=== PATIENT | male | born 1985 | race Caucasian/White ===

== ENCOUNTER 2016-09-17 08:43 | Emergency (ER) | payer BC ==
[2016-09-17] MEDS ORDERED: Sodium Chloride 0.9% 10 ML Syringe FLUSH PRN ×2 (09:01→09:10)
[2016-09-17 09:02] VITALS: BP 119/65
[2016-09-17] MEDS ORDERED: HYDROmorphone 1 MG/ML Syringe IVPUSH ONE (09:03)
[2016-09-17] MEDS ORDERED: Iopamidol 755 Mg/ML 100 ML Bottle IVPUSH ONE (09:10)
[2016-09-17] MEDS ORDERED: Iopamidol 755 MG/ML 50 ML Bottle IVPUSH ONE (09:10)
[2016-09-17] MEDS ORDERED: Sodium Chloride 0.9% 100 ML IV SCH (09:15)
--- NOTE | 2016-09-17 09:46 | CT ---
CT chest Technique: Multiple axial sections through the chest were obtained. Intravenous contrast was utilized. Study has been performed as a pulmonary angiogram protocol. Findings: Pulmonary arteries are fairly well-opacified. No filling defects are seen to indicate pulmonary embolism. No pericardial thickening is seen. Mediastinum and hilar regions show no adenopathy or mass. No axillary adenopathy is seen. Small portion of the visualized upper abdominal structures appears within normal limits. Lung window settings were reviewed appear clear. No pleural effusions are seen. Bone window settings were reviewed which shows no discrete abnormality. Impression: 1. No findings of pulmonary embolism. 2. Other portions of the CT exam of the chest appears within normal limits. Diagnostic code #1
--- NOTE | 2016-09-17 10:09 | EDM.PDOC ---
ED HPI GENERAL MEDICAL PROBLEM - General Chief Complaint: Chest Pain Stated Complaint: CHEST PAIN Time Seen by Provider: 09/17/16 08:56 Source of Information: Reports: Patient History Limitations: Reports: No Limitations - History of Present Illness INITIAL COMMENTS - FREE TEXT/NARRATIVE: The patient presents with right upper back pain and shortness of breath. He woke up with this yesterday morning. He denies any injury. The pain is constant, sharp and it is made worse by movement and deep breathing. He has no fever, chills, cough, chest pain, abdominal pain, nausea or vomiting. He has no history of heart problems, DVT, PE, or HTN. He has no pain or edema in his legs. 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 Onset: Sudden Duration: Day(s): (Yesterday at 9am) Location: Reports: Back (Right upper) Quality: Reports: Sharp Severity: Severe Improves with: Reports: Immobilization Worsens with: Reports: Breathing, Movement Context: Reports: Activity (He woke up with it) Associated Symptoms: Reports: Shortness of Breath. Denies: Chest Pain, Cough, Fever/Chills, Nausea/Vomiting Left Back Pain Score (Numeric/FACES): 5 - Related Data Allergies Allergy/AdvReac Type Severity Reaction Status Date / Time coconut oil Allergy Hives Verified 09/17/16 08:58 Home Meds: Home Meds Cyclobenzaprine [Flexeril] 10 mg PO TID PRN #20 tablet 09/17/16 [Rx] Hydrocodone/Acetaminophen [Hydrocodon-Acetaminophen 5-325] 1 - 2 each PO Q6HR PRN #20 tablet 09/17/16 [Rx] Past Medical History - Past Health History Medical/Surgical History: Denies Medical/Surgical History Social & Family History - Tobacco Use Smoking Status *Q: Never Smoker - Recreational Drug Use Recreational Drug Use: No ED ROS GENERAL - Review of Systems Review Of Systems: See Below Constitutional: Reports: No Symptoms HEENT: Reports: No Symptoms Respiratory: Reports: Shortness of Breath. Denies: Cough Cardiovascular: Reports: No Symptoms Endocrine: Reports: No Symptoms GI/Abdominal: Reports: No Symptoms : Reports: No Symptoms Musculoskeletal: Reports: Back Pain (Right upper) Skin: Reports: No Symptoms ED EXAM, GENERAL - Physical Exam Exam: See Below Exam Limited By: No Limitations General Appearance: Alert, No Apparent Distress Ears: Normal External Exam Nose: Normal Inspection Head: Atraumatic, Normocephalic Neck: Normal Inspection Respiratory/Chest: No Respiratory Distress, Lungs Clear, Normal Breath Sounds Cardiovascular: Regular Rate, Rhythm, No Edema, No Murmur GI/Abdominal: Soft, Non-Tender, No Organomegaly, No Mass Back Exam: Other (Pain upon palpation to the right upper back just medial to the scapula) EKG INTERPRETATION EKG Date: 09/17/16 Time: 08:51 Rhythm: Other (Sinus bradycardia) Rate (Beats/Min): 41 [place]: Normal P-Wave: Present QRS: Normal ST-T: Normal QT: Normal Course - Vital Signs Last Recorded V/S: Last Vital Signs Temp 97.4 F 09/17/16 08:59 Pulse 45 L 09/17/16 08:59 Resp 13 09/17/16 08:59 BP 119/65 09/17/16 08:59 Pulse Ox 100 09/17/16 08:59 - Orders/Labs/Meds Orders: Active Orders 24 hr Category Date Time Status Cardiac Monitoring [RC] . DIRECTED Care 09/17/16 09:01 Active EKG 12 Lead [EKG Documentation Completion] [RC] STAT Care 09/17/16 09:19 Active Oxygen Therapy [RC] PRN Care 09/17/16 09:02 Active Peripheral IV Care [RC] . DIRECTED Care 09/17/16 09:02 Active Sodium Chloride 0.9% [Normal Saline] 100 ml Med 09/17/16 09:15 Active IV ASDIRECTED Sodium Chloride 0.9% [Saline Flush] Med 09/17/16 09:01 Active 10 ml FLUSH ASDIRECTED PRN Sodium Chloride 0.9% [Saline Flush] Med 09/17/16 09:10 Active 10 ml FLUSH ONETIME PRN Peripheral IV Insertion Adult [OM.PC] Stat Oth 09/17/16 09:01 Ordered Medication Orders Sodium Chloride (Normal Saline) 100 mls @ 80 mls/hr IV ASDIRECTED SU Last Admin: 09/17/16 09:14 Dose: 80 mls/hr Sodium Chloride (Saline Flush) 10 ml FLUSH ASDIRECTED PRN PRN Reason: Keep Vein Open Last Admin: 07/14/17 09:28 Dose: 10 ml Sodium Chloride (Saline Flush) 10 ml FLUSH ONETIME PRN PRN Reason: IV FLUSH Last Admin: 09/17/16 09:15 Dose: 10 ml Labs: Laboratory Tests 09/17/16 09/17/16 Range/Units 09:00 09:00 WBC 7.97 (4.23-9.07) K/mm3 RBC 4.77 (4.63-6.08) M/mm3 Hgb 14.9 (13.7-17.5) gm/L Hct 42.8 (40.1-51.0) % MCV 89.7 (79.0-92.2) fl MCH 31.2 (25.7-32.2) pg MCHC 34.8 (32.2-35.5) g/dl RDW Std Deviation 41.5 (35.1-43.9) fL Plt Count 237 (163-337) K/mm3 MPV 9.4 (9.4-12.3) fl Neut % (Auto) 60.4 (34.0-67.9) % Lymph % (Auto) 26.1 (21.8-53.1) % Cross % (Auto) 8.7 (5.3-12.2) % Eos % (Auto) 3.6 (0.8-7.0) Baso % (Auto) 0.6 (0.1-1.2) % Neut # (Auto) 4.81 (1.78-5.38) K/mm3 Lymph # (Auto) 2.08 (1.32-3.57) K/mm3 Cross # (Auto) 0.69 (0.30-0.82) K/mm3 Eos # (Auto) 0.29 (0.04-0.54) K/mm3 Baso # (Auto) 0.05 (0.01-0.08) K/mm3 Sodium 140 (136-145) mEq/L Potassium 4.6 (3.5-5.1) mEq/L Chloride 108 H (98-107) mEq/L Carbon Dioxide 25 (21-32) mEq/L Anion Gap 11.6 (5-15) BUN 12 (7-18) mg/dL Creatinine 1.0 (0.7-1.3) mg/dL Est Cr Clr Drug Dosing 117.48 mL/min Estimated GFR (MDRD) > 60 (>60) mL/min BUN/Creatinine Ratio 12.0 L (14-18) Glucose 102 (74-106) mg/dL Calcium 8.5 (8.5-10.1) mg/dL Total Bilirubin 0.5 (0.2-1.0) mg/dL AST 31 (15-37) U/L ALT 40 (16-63) U/L Alkaline Phosphatase 104 (46-116) U/L Troponin I < 0.017 (0.00-0.056) ng/mL Total Protein 6.7 (6.4-8.2) g/dl Albumin 3.5 (3.4-5.0) g/dl Globulin 3.2 gm/dL Albumin/Globulin Ratio 1.1 (1-2) Meds: Medications Generic Name Dose Route Start Last Admin Trade Name Freq PRN Reason Stop Dose Admin Sodium Chloride 100 mls @ 80 mls/hr 09/17/16 09:15 09/17/16 09:14 Normal Saline IV 80 mls/hr ASDIRECTED SU Administration Sodium Chloride 10 ml 09/17/16 09:01 09/17/16 09:28 Saline Flush FLUSH 10 ml ASDIRECTED PRN Administration Keep Vein Open Sodium Chloride 10 ml 09/17/16 09:10 09/17/16 09:15 Saline Flush FLUSH 10 ml ONETIME PRN Administration IV FLUSH Discontinued Medications Generic Name Dose Route Start Last Admin Trade Name Freq PRN Reason Stop Dose Admin Hydromorphone HCl 1 mg 09/17/16 09:03 09/17/16 09:26 Dilaudid IVPUSH 09/17/16 09:04 1 mg ONETIME ONE Administration Iopamidol 50 ml 09/17/16 09:10 09/17/16 09:15 [id number] (76%) IVPUSH 09/17/16 09:11 50 ml ONETIME ONE Administration Iopamidol 100 ml 09/17/16 09:10 09/17/16 09:15 Isovue-370 (76%) IVPUSH 09/17/16 09:11 60 ml ONETIME ONE Administration - Re-Assessments/Exams Free Text/Narrative Re-Assessment/Exam: 09/17/16 10:09 I ordered an IV saline lock, dilaudid 1mg IV, EKG, labs and a CT angio of his chest to rule out PE. His EKG shows a sinus bradycardia at a rate of 41 with no acute changes. He says his heart rate is low at time but not this low from what he remembers. He is not lightheaded with this. His labs all look good. The CT of his chest shows no PE and nothing else abnormal. It appears to be a muscle cramp and back strain. I will get flexeril and hydrocodone. I will also put him on a holter monitor for 2 days. He says at times he will get lightheaded and shaky. He will eat tome sugar and feel better. This could be related. I will see what the holter monitor shows. Departure - Departure Time of Disposition: 10:20 Disposition: Home, Self-Care 01 Condition: Good Clinical Impression: Bradycardia Thoracic back pain Qualifiers: Chronicity: acute Back pain laterality: right Qualified Code(s): M54.6 - Pain in thoracic spine Prescriptions: Hydrocodone/Acetaminophen [Hydrocodon-Acetaminophen 5-325] 1 - 2 each PO Q6HR PRN #20 tablet PRN Reason: Pain Cyclobenzaprine [Flexeril] 10 mg PO TID PRN #20 tablet PRN Reason: Pain Referrals: Mamie Tafoya BOAT DESIGNER [Ordering Only Provider] - 1 Week Forms: ED Department Discharge, Return to Work/School Form Additional Instructions: Take the hydrocodone and flexeril for the back pain. You may also take motrin or aleve for the pain. Wear the holter monitor for 2 days and return it. Follow up with Mamie Tafoya next week. Please return if you are worse. - My Orders Last 24 Hours: My Active Orders 09/17/16 09:01 Cardiac Monitoring [RC] . DIRECTED Sodium Chloride 0.9% [Saline Flush] 10 ml FLUSH ASDIRECTED PRN Peripheral IV Insertion Adult [OM.PC] Stat 09/17/16 09:02 Oxygen Therapy [RC] PRN Peripheral IV Care [RC] . DIRECTED 09/17/16 09:10 Sodium Chloride 0.9% [Saline Flush] 10 ml FLUSH ONETIME PRN 09/17/16 09:15 Sodium Chloride 0.9% [Normal Saline] 100 ml IV ASDIRECTED 09/17/16 09:19 EKG 12 Lead [EKG Documentation Completion] [RC] STAT - Assessment/Plan Last 24 Hours: My Active Orders 09/17/16 09:01 Cardiac Monitoring [RC] . DIRECTED Sodium Chloride 0.9% [Saline Flush] 10 ml FLUSH ASDIRECTED PRN Peripheral IV Insertion Adult [OM.PC] Stat 09/17/16 09:02 Oxygen Therapy [RC] PRN Peripheral IV Care [RC] . DIRECTED 09/17/16 09:10 Sodium Chloride 0.9% [Saline Flush] 10 ml FLUSH ONETIME PRN 09/17/16 09:15 Sodium Chloride 0.9% [Normal Saline] 100 ml IV ASDIRECTED 09/17/16 09:19 EKG 12 Lead [EKG Documentation Completion] [RC] STAT
== END 2016-09-17 11:05 | disposition home or self-care (01) ==
LOC: JD.ED 08:43
DX: M54.6 Pain in thoracic spine (principal); R00.1 Bradycardia, unspecified; Z91.018 Allergy to other foods
CPT/HCPCS: 36415; 71275; 80053; 84484; 85025; 93005; 93225; 93226; 96374; 99285; J1170; J7030; J7050; Q9967; 99284

== ENCOUNTER 2016-09-18 10:08 | Emergency (ER) | payer BC ==
[2016-09-18 10:17] VITALS: BP 115/77
[2016-09-18] MEDS ORDERED: Orphenadrine 100 MG Tab.ER PO STA (10:35)
--- NOTE | 2016-09-18 10:44 | EDM.PDOC ---
ED HPI GENERAL MEDICAL PROBLEM - General Chief Complaint: Chest Pain Stated Complaint: BACK PAIN AND CHEST PAIN NOT BETTER Time Seen by Provider: 09/18/16 10:19 Source of Information: Reports: Patient, Old Records, RN Notes Reviewed History Limitations: Reports: No Limitations - History of Present Illness INITIAL COMMENTS - FREE TEXT/NARRATIVE: The patient was seen in this ED yesterday, 09/17/2016 with upper back pain and shortness of breath since yesterday morning. The pain was made worse with movement and deep breathing. Workup included a CBC, CMP, troponin, and ECG, and a CT echogram of the chest. Other than bradycardia at 41 bpm, the patient's workup was unremarkable. Dr. Galan felt that the patient was suffering from a muscle cramp and back strain, and prescribed Flexeril and hydrocodone, along with a 48 hour Holter monitor The patient now returns with the same complaint of left scapular pain, without radiation. It is stabbing and dull in character. It is made worse if the patient turns his head to the right or tips his chin to his chest, breathing deeply, or crosses his left lower extremity across his chest. He reports some shortness of breath, but no nausea, diaphoresis, or sense of impending doom. He states that his symptoms have not improved since yesterday, which is why he has returned. The patient's PCP is Kaitlin Tafoya. The patient states that he has a follow- up appointment with her this coming 09/21/2016. Back Pain Score (Numeric/FACES): 8 - Related Data Allergies Allergy/AdvReac Type Severity Reaction Status Date / Time coconut oil Allergy Hives Verified 09/17/16 08:58 Home Meds: Home Meds Cyclobenzaprine [Flexeril] 10 mg PO TID PRN #20 tablet 09/17/16 [Rx] Hydrocodone/Acetaminophen [Hydrocodon-Acetaminophen 5-325] 1 - 2 each PO Q6HR PRN #20 tablet 09/17/16 [Rx] Orphenadrine [Norflex] 1 tab PO Q12H #20 tab.er 09/18/16 [Rx] Past Medical History - Past Surgical History HEENT Surgical History: Reports: Oral Surgery ([place] teeth extraction) Musculoskeletal Surgical History: Reports: Arthroscopic Knee (right) Social & Family History - Family History Family Medical History: Noncontributory - Tobacco Use Smoking Status *Q: Never Smoker - Caffeine Use Caffeine Use: Reports: None - Alcohol Use Alcohol Use History: Yes Alcohol Use Frequency: Rarely - Recreational Drug Use Recreational Drug Use: No - Living Situation & Occupation Living situation: Reports: Single, with Significant Other (Fiance), with Family (Daughter) 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) ED ROS GENERAL - Review of Systems Review Of Systems: See Below Constitutional: Reports: No Symptoms HEENT: Reports: No Symptoms Respiratory: Reports: No Symptoms Cardiovascular: Reports: No Symptoms Endocrine: Reports: No Symptoms GI/Abdominal: Reports: No Symptoms : Reports: No Symptoms Musculoskeletal: Reports: No Symptoms Skin: Reports: No Symptoms Neurological: Reports: No Symptoms Psychiatric: Reports: No Symptoms Hematologic/Lymphatic: Reports: No Symptoms Immunologic: Reports: No Symptoms ED EXAM, GENERAL - Physical Exam Exam: See Below Exam Limited By: No Limitations General Appearance: Alert, WD/WN, No Apparent Distress Eye Exam: Bilateral Eye: Normal Inspection Ears: Normal External Exam, Hearing Grossly Normal Nose: Normal Inspection, No Blood Throat/Mouth: Normal Inspection, Normal Lips, Normal Voice, No Airway Compromise Head: Atraumatic, Normocephalic Neck: Normal Inspection, Supple, Non-Tender, Full Range of Motion, Other (Pain induced in the patient's left scapular area with turning his head to the right, or tipping his chin to his chest, but not with turning his head to the left or extending his head backwards.) Respiratory/Chest: No Respiratory Distress, Lungs Clear, Normal Breath Sounds, No Accessory Muscle Use, Chest Non-Tender Cardiovascular: Normal Peripheral Pulses, Regular Rate, Rhythm, No Gallop, No JVD, No Murmur, No Rub Peripheral Pulses: 4+: Radial (L), Radial (R) GI/Abdominal: Normal Bowel Sounds, Soft, Non-Tender, No Organomegaly, No Distention, No Abnormal Bruit, No Mass (Male) Exam: Deferred Rectal (Males) Exam: Deferred Back Exam: Normal Inspection, Full Range of Motion, Other (Reproducible tenderness to palpation of the left parascapular musculature.) Extremities: Normal Inspection, Normal Range of Motion, No Pedal Edema, Normal Capillary Refill Neurological: Alert, Oriented, Normal Cognition, No Motor/Sensory Deficits Psychiatric: Normal Affect Skin Exam: Warm, Dry, Intact, Normal Color, No Rash Lymphatic: No Adenopathy Course - Vital Signs Last Recorded V/S: Last Vital Signs Temp 36.6 C 09/18/16 10:13 Pulse 41 L 09/18/16 10:13 Resp 14 09/18/16 10:13 BP 115/77 09/18/16 10:13 Pulse Ox 97 09/18/16 10:13 - Orders/Labs/Meds Orders: Active Orders 24 hr Category Date Time Status EKG Documentation Completion [RC] STAT Care 09/18/16 10:23 Active Meds: Medications Discontinued Medications Generic Name Dose Route Start Last Admin Trade Name Lizz PRN Reason Stop Dose Admin Orphenadrine Citrate 100 mg 09/18/16 10:35 09/18/16 10:40 Norflex PO 09/18/16 10:36 100 mg ONETIME STA Administration - Re-Assessments/Exams Free Text/Narrative Re-Assessment/Exam: 09/18/16 10:36 The patient is suffering from left parascapular muscle spasm. It is reproducible on palpation, as well as with certain physical activities. His examination is not consistent with cervical radiculopathy. The patient was prescribed both Flexeril and [place] yesterday. Flexeril is not actually a muscle relaxant - I am going to switch him to Norflex. Additionally, one of the side effects of all opioids is muscle spasm, therefore it is not the ideal agent for pain from a muscle spasm. I am going to recommend he switch to ibuprofen. The additional benefit of the switch is is that the patient would be able to work and drive, which is not possible if he is taking either Flexeril or [place]. The patient is anxious to get rid of the Holter monitor, stating that it is not staying on, anyway. I will have respiratory collect it. Departure - Departure Time of Disposition: 10:37 Disposition: Home, Self-Care 01 Condition: Good Clinical Impression: Muscle spasm of back - Discharge Information Prescriptions: Orphenadrine [Norflex] 1 tab PO Q12H #20 tab.er Instructions: Muscle Cramps and Spasms, [id number] Referrals: Mamie Tafoya, SAFETY ASSOCIATE [Primary Care Provider] - Forms: ED Department Discharge Additional Instructions: You were seen in the emergency room for pain in your left shoulder blade area. Workup for this same problem yesterday, 09/17/2016, included a CBC, CMP, troponin , ECG, and CT angiogram of her chest, all of which were normal. You do not have a blood clot in your chest, pneumonia, a collapsed lung, and you have not had a heart attack. On examination, you have reproducible tenderness to this area, due to a muscle spasm of the parascapular muscles. Your pain has nothing to do with your heart. You have been started on the muscle relaxant Norflex. Take one tablet every 12 hours, as prescribed. We recommend you take [id number] ibuprofen, 2-3 tablets (400-600 mg) every 8 hours, with food, as needed for discomfort. We recommend that you DISCONTINUE both the Flexeril and [place]. Follow-up with your PCP, Kaitlin Tafoya, at your previously scheduled appointment this coming 09/21/2016. If any other problems, please do not hesitate to return to the ER. - My Orders Last 24 Hours: My Active Orders 09/18/16 10:23 EKG Documentation Completion [RC] STAT - Assessment/Plan Last 24 Hours: My Active Orders 09/18/16 10:23 EKG Documentation Completion [RC] STAT
== END 2016-09-18 10:53 | disposition home or self-care (01) ==
LOC: JD.ED 10:08
DX: M62.830 Muscle spasm of back (principal); Z91.048 Other nonmedicinal substance allergy status
CPT/HCPCS: 93005; 99285; A9270; 99283

== ENCOUNTER 2021-10-03 16:28 | Emergency (ER) | payer BC ==
[2021-10-03 17:23] VITALS: BP 110/70; PULSE 83
[2021-10-03] MEDS ORDERED: Ketorolac 60 MG/2 ML SDV IM ONE (17:30)
== END 2021-10-03 18:30 | disposition home or self-care (01) ==
LOC: JD.ED 16:28
DX: S86.111A Strain of other muscle(s) and tendon(s) of posterior muscle group at lower leg level, right leg, initial encounter (principal); F17.210 Nicotine dependence, cigarettes, uncomplicated; Z91.048 Other nonmedicinal substance allergy status; X50.0XXA Overexertion from strenuous movement or load, initial encounter; Y93.44 Activity, trampolining
CPT/HCPCS: 96372; 99283; J1885